=== PATIENT | female | born 1980 | race Caucasian/White ===

== ENCOUNTER 2025-02-27 14:53 | Emergency (ER) | payer MEDICAID, SELFPAY ==
[2025-02-27 14:53] VITALS: BP 144/118; PULSE 84; RESP 16; TEMP 36.8; O2SAT 100; BMI 26.7
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
--- NOTE | 2025-02-27 16:10 | RAD_ITS ---
PROCEDURE: SHOULDER MIN 2 VIEWS 02/27/2025 REASON FOR EXAM: PAIN TECHNIQUE: SHOULDER MIN 2 VIEWS COMPARISON: None RAD/Shoulder min 2 Views IMPRESSION: No acute fracture or dislocations. Question Hill-Sachs deformity. No signific ant degenerative changes. No acute soft tissue abnormalities. No radiographic foreign body. Reading Location: [id number]
[2025-02-27 17:31] VITALS: BP 118/62; PULSE 76; RESP 16; TEMP 36.4; O2SAT 100
== END 2025-02-27 17:33 | disposition home or self-care (01) ==
PROVIDERS: Emergency Provider Emergency Medicine; Referring Provider Emergency Medicine; Visit Provider Emergency Medicine
DX: M25.511 Pain in right shoulder (principal); M79.662 Pain in left lower leg; F17.200 Nicotine dependence, unspecified, uncomplicated; V23.41XA Electric (assisted) bicycle driver injured in collision with car, pick-up truck or van in traffic accident, initial encounter
CPT/HCPCS: 73030; 99282